=== PATIENT | female | born 1990 | race Caucasian/White ===

== ENCOUNTER 2020-02-01 18:13 | Emergency (ER) | payer OTHER ==
[~2020-02-01] VITALS: Ht 157.5 cm; Wt 56.7 kg
== END 2020-02-01 21:59 | disposition home or self-care (01) ==
LOC: ER 18:13
DX: O23.31 Infections of other parts of urinary tract in pregnancy, first trimester (principal); Z3A.01 Less than 8 weeks gestation of pregnancy